=== PATIENT | female | born 1975 | race Caucasian/White ===

== ENCOUNTER 2023-08-22 11:41 | Outpatient (CLI) | payer OTHER, SELFPAY | END 2023-08-22 11:42 | disposition home or self-care (01) | LOC: NFLDREF 08-25 11:29 | PROVIDERS: Visit Provider Physician Assistant Medical | DX: N91.2 Amenorrhea, unspecified (principal); Z78.0 Asymptomatic menopausal state | CPT/HCPCS: 83001 ==

== ENCOUNTER 2023-11-27 09:59 | Outpatient (CLI) | payer OTHER, SELFPAY | END 2023-11-27 10:00 | disposition home or self-care (01) | LOC: NFLDREF 11-28 11:53 | PROVIDERS: Visit Provider Physician Assistant Medical | DX: R55 Syncope and collapse (principal); R07.9 Chest pain, unspecified | CPT/HCPCS: 80053; 82306; 82607; 82728; 84443 ==

== ENCOUNTER 2023-12-13 07:47 | Outpatient (CLI) | payer OTHER, SELFPAY | END 2023-12-13 07:48 | disposition home or self-care (01) | PROVIDERS: PCP Physician Assistant Medical; Visit Provider Physician Assistant Medical | DX: R55 Syncope and collapse (principal) | CPT/HCPCS: 93306 ==

== ENCOUNTER 2024-06-13 08:43 | Outpatient (CLI) | payer OTHER, SELFPAY ==
[2024-06-15 01:36] LABS: Tissue Transglut Ab IgA 6.76 FLU (0.00-4.99)
[2024-06-15 03:13] LABS: Immunoglobulin A 148 mg/dL (68-408)
== END 2024-06-13 08:44 | disposition home or self-care (01) ==
LOC: NPINS 08:43
PROVIDERS: PCP Physician Assistant Medical; Visit Provider Student in an Organized Health Care Education/Training Program
DX: K90.0 Celiac disease (principal)
CPT/HCPCS: 82784; 86231; 86258; 86364

== ENCOUNTER 2024-10-23 09:55 | Outpatient (CLI) | payer OTHER, SELFPAY | END 2024-10-23 09:56 | disposition home or self-care (01) | LOC: NFLDREF 10-26 20:26 | PROVIDERS: PCP Physician Assistant Medical; Referring Provider Physician Assistant Medical; Visit Provider Physician Assistant Medical | DX: I10 Essential (primary) hypertension (principal); K90.0 Celiac disease | CPT/HCPCS: 80053; 80061; 82728; 82784; 84443; 86231; 86258; 86364 ==